=== PATIENT | male | born 1965 | race Caucasian/White ===

== ENCOUNTER → 2016-10-27 | Outpatient (CLI) | payer BC | END | disposition home or self-care (01) | LOC: GMAB 08:34 | PROVIDERS: ATTEND Family Medicine | DX: Z00.00 Encounter for general adult medical examination without abnormal findings (principal); E53.9 Vitamin B deficiency, unspecified; E51.9 Thiamine deficiency, unspecified; E55.9 Vitamin D deficiency, unspecified ==

== ENCOUNTER → 2017-02-01 | Outpatient (CLI) | payer BC | END | disposition home or self-care (01) | LOC: GMAB 10:46 | PROVIDERS: ATTEND Family Medicine | DX: E53.8 Deficiency of other specified B group vitamins (principal); E50.8 Other manifestations of vitamin A deficiency ==

== ENCOUNTER → 2017-04-05 | Outpatient (CLI) | payer BC | END | disposition home or self-care (01) | LOC: GMAB 10:36 | PROVIDERS: ATTEND Family Medicine | DX: R94.5 Abnormal results of liver function studies (principal) ==

== ENCOUNTER → 2017-05-15 | Outpatient (CLI) | payer BC | END | disposition home or self-care (01) | LOC: GMAB 15:39 | PROVIDERS: ATTEND Family Medicine | DX: R94.5 Abnormal results of liver function studies (principal) ==

== ENCOUNTER → 2017-05-22 | Outpatient (CLI) | payer BC ==
--- NOTE | 2017-05-22 15:37 | US ---
EXAM DESCRIPTION: Abdomen,Complete: Ultrasound. CLINICAL HISTORY: LIVER . Elevated LFTs. COMPARISON: None Available. TECHNIQUE: Transabdominal scannin-dimensional and Doppler modes.. Technically difficult study due to patient large body habitus. FINDINGS: The gallbladder is surgically absent. No fluid in the gallbladder fossa. Common bile duct caliber 6.2 mm which is physiologic postcholecystectomy.. No stones in the visualized portion of the duct. Not tender with transducer pressure. The liver demonstrates increased heterogeneous echogenicity; contour of the liver capsule is smooth where seen. No fluid around the liver. Intrahepatic biliary ducts are non-dilated. Craniocaudal dimension in the mid-clavicular axis is 17.9 cm. Pancreas head, body, and tail not well visualized. Duct was not seen. Abdominal aorta diameter proximal 1.8 cm. Mid 1.7 cm. Distal 2.4 cm. IVC visualized; normal caliber. Spleen normal echogenicity; long axis measurement is 14.4 cm. No fluid in the spleno-renal fossa. Right kidney measures 12.3 x 5.6 x 5.4 cm normal mid renal cortical thickness. Central 1.4 x 1.5 cm cyst. Echogenicity normal with no hydronephrosis, no large calcifications, and no perinephric fluid. Contour smooth. Vascularity normal. Ureter not visualized. Left kidney measures 12.7 x 7.1 x 5.8 cm with normal mid renal cortical thickness. 5.4 mm echogenic object in the mid cortex with possible acoustic posterior shadowing. 1.3 mm oval anechoic cortical cyst. Echogenicity otherwise normal with no hydronephrosis, no large calcifications, and no perinephric fluid. Contour smooth. Vascularity normal. Ureter not visualized. IMPRESSION: 1. Technically difficult study due to patient body habitus. 2. Fatty infiltration steatosis of the liver with mild enlargement. This can be a result of obesity and a variety of metabolic and toxic conditions. No ascites. Intrahepatic ducts are nondilated. 3. Pancreas was not well seen. Gallbladder has been surgically removed with no fluid in the gallbladder fossa. Physiologic dilation of the common bile duct. 4. Bilateral renal cysts. Possible 5.4 mm stone in the inferior left kidney with no hydronephrosis. No perinephric fluid bilaterally. 5. Minimal splenomegaly but normal echogenicity. No ascites. Electronically signed by: Jan Lee MD 05/22/2017 3:36 PM CDT
== END ==
LOC: US 07:54
PROVIDERS: ATTEND Family Medicine
DX: R94.5 Abnormal results of liver function studies (principal); K76.0 Fatty (change of) liver, not elsewhere classified; N28.1 Cyst of kidney, acquired

== ENCOUNTER → 2017-06-20 | Outpatient (CLI) | payer BC | END | disposition home or self-care (01) | LOC: LAB.O 10:45 | PROVIDERS: ATTEND Internal Medicine Gastroenterology | DX: R94.5 Abnormal results of liver function studies (principal) ==

== ENCOUNTER → 2017-09-10 | Outpatient (CLI) | payer BC | LOC: GMAB 11:28 | PROVIDERS: ATTEND Family Medicine | DX: D64.9 Anemia, unspecified (principal) ==

== ENCOUNTER → 2017-09-10 | Outpatient (CLI) | payer BC, OTHER, SELFPAY ==
--- NOTE | 2017-09-10 12:05 | RAD ---
EXAM DESCRIPTION: Neck, soft Tissue: CR. CLINICAL HISTORY: 51 years Male, MRI SCREEN COMPARISON: MRI scan of the lumbar spine to follow. TECHNIQUE: AP and lateral neck soft tissues. FINDINGS: Small surgical clip in the vicinity of the left C6-7 neural foramen. Cerclage wire loop left lateral elements at C5-6. No vascular hardware or surgical hardware. IMPRESSION: Cleared for MRI scan of the lumbar spine to follow. Electronically signed by: Jan Lee MD 09/10/2017 12:04 PM [facility]
--- NOTE | 2017-09-11 08:56 | MRI ---
EXAM DESCRIPTION: Lumbar Spine w/o Contrast MRI. CLINICAL HISTORY: LOW BACK PAIN COMPARISON: None. TECHNIQUE: Multiplanar, multiple standard sequences, non contrast MRI, lumbar spine. Sagittal and axial T2 sequences degraded by patient motion. FINDINGS: L5-S1 disc desiccation and minimal disc space loss. Left posterior 6 mm disc protrusion impressing on the ventral thecal sac and displacing the descending left S1 nerve above the lateral recess. Annular fissure in the disc. Bilateral lateral recess narrowing. Left paracentral mild canal stenosis. Bilateral facet arthrosis and mild flavum ligament hypertrophy. Stenosis of the right foramen and near stenosis of the left foramen. L4-5: Disc desiccation with posterior annular fissure. Minimal posterior broad-based bulge abutting the thecal sac and the descending bilateral L5 nerve roots. Mild facet arthrosis and ligament hypertrophy. AP canal diameter 10 mm. Moderate bilateral foraminal narrowing. L3-4: Minimal disc desiccation with disc space preserved. 6 mm disc protrusion into the right ventral canal abutting the descending right L4 nerve. Larger protrusion into the foramen creating foraminal stenosis and impingement of the right L3 nerve. Right paracentral mild canal stenosis. Minimal facet arthrosis and flavum ligament hypertrophy. Moderate left foraminal narrowing. L2-3: Minimal disc space loss with anterior bulging and anterior spurs. Small Schmorl's nodes. Posterior broad-based 3 mm bulge abutting the thecal sac in the descending L3 nerves above the lateral recess. Narrowing of the bony transverse canal with flavum hypertrophy and arthrosis of the facets. Borderline mild canal stenosis. Moderate left foraminal narrowing with right foramen patent. L1-2: Minimal disc desiccation. Schmorl's nodes in the endplates. No disc bulge. Transverse bony canal narrowing. Flavum ligament hypertrophy and facet arthrosis. Borderline canal stenosis. Left foramen patent mild narrowing right foramen. T12-L1: Minimal disc desiccation. Small Schmorl's nodes in the endplates. Minimal disc space loss. No disc bulging. Conus terminates at this level. Moderate canal narrowing. Bilateral foramina are patent. Paravertebral soft tissues are unremarkable. Normal marrow signal in the remaining vertebral bodies and the posterior elements. Vertebral bodies are not compressed at any level. IMPRESSION: 1. Left posterior L5-S1 disc protrusion. Imaging the thecal sac and the descending left S1 nerve with left paracentral canal stenosis. 2. Right posterior and right intraforaminal L3-4 disc protrusion abutting the descending right L4 nerve impinging the right L3 nerve in the foramen which is stenotic. Right paracentral mild canal stenosis. 3. Posterior broad-based L4-5 disc bulge abutting the descending bilateral L5 nerve roots. Borderline mild central canal stenosis. 4. Borderline mild central canal stenosis at L2-3 and L1-2 which is multifactorial. Posterior broad-based disc bulge at L2-3 also abutting the descending L3 nerves above the lateral recesses. Multiple levels of near-foraminal stenosis. Electronically signed by: Jan Lee MD 09/11/2017 8:55 AM SALES ORDER CLERK
== END ==
LOC: MRI 11:17
PROVIDERS: ATTEND Orthopaedic Surgery
DX: M51.26 Other intervertebral disc displacement, lumbar region (principal)

== ENCOUNTER → 2017-11-07 | Outpatient (CLI) | payer BC | END | disposition home or self-care (01) | LOC: GMAB 09:10 | PROVIDERS: ATTEND Family Medicine | DX: D50.9 Iron deficiency anemia, unspecified (principal); Z00.01 Encounter for general adult medical examination with abnormal findings; Z98.84 Bariatric surgery status; E55.9 Vitamin D deficiency, unspecified; E53.8 Deficiency of other specified B group vitamins ==

== ENCOUNTER → 2018-02-13 | Outpatient (CLI) | payer BC | LOC: GMAE 12:22 | PROVIDERS: ATTEND Family Medicine | DX: D64.9 Anemia, unspecified (principal) ==

== ENCOUNTER → 2018-03-08 | Outpatient (CLI) | payer BC | LOC: GMAE 10:28 | PROVIDERS: ATTEND Family Medicine | DX: D64.9 Anemia, unspecified (principal) ==

== ENCOUNTER → 2018-04-09 | Outpatient (CLI) | payer BC ==
--- NOTE | 2018-04-09 08:58 | MRI ---
EXAM DESCRIPTION: Thoracic Spine w/o Contrast CLINICAL HISTORY: 52 years Male, UPPER BACK PAIN COMPARISON: None. TECHNIQUE: Multiplanar multiecho imaging of the thoracic spine was performed without gadolinium administration. FINDINGS: T12 vertebral body is not included on this examination. Remainder of the vertebral body heights are well-maintained with no acute compression deformity. The intervertebral disc spaces are well preserved. No evidence of disc herniation. No canal stenosis or neural foraminal narrowing. The visualized thoracic spinal cord demonstrates no intrinsic signal abnormality. The visualized prevertebral and paravertebral soft tissues appear normal. IMPRESSION: T12 vertebral body is not included on this examination. Otherwise, grossly normal MRI of the thoracic spine. Electronically signed by: Brianne Stroud MD 04/09/2018 8:57 AM CDT
== END ==
LOC: MRI 06:52
PROVIDERS: ATTEND Family Medicine
DX: M54.6 Pain in thoracic spine (principal)

== ENCOUNTER → 2018-07-26 | Outpatient (CLI) | payer BC ==
--- NOTE | 2018-07-26 09:17 | US ---
EXAM DESCRIPTION: Ultrasound exam of the right upper quadrant with attention to the liver CLINICAL HISTORY: ABNORMAL RESULTS OF LIVER FUNCTION STUDIES COMPARISON: None Available. TECHNIQUE: Right upper quadrant ultrasound FINDINGS: Pancreas: Visualized portions of the pancreas are unremarkable. Bowel gas obscures some areas. Aorta/inferior vena cava: No aortic aneurysm. Normal inferior vena cava. Liver: The liver is homogeneous in texture with normal echogenicity of the hepatic parenchyma. No focal liver lesion or intrahepatic bile duct dilatation. No liver surface irregularity. Normal appearance of the portal vein and hepatic veins. Gallbladder: Not seen, evidently surgically absent. Common bile duct: Normal caliber measuring 4.0 mm. Right kidney: Renal length is 12.2 cm. Normal cortical echogenicity. Cortical thickness is decreased at the upper pole consistent with focal scarring. No hydronephrosis is seen. No renal mass or shadowing calculus. IMPRESSION: No diagnostic abnormality is identified on sonographic examination of the right upper quadrant. Electronically signed by: Roque Moscoso MD 07/26/2018 9:16 AM ONLINE MARKETING ANALYST
== END ==
LOC: US 08:18
PROVIDERS: ATTEND Family Medicine
DX: R94.5 Abnormal results of liver function studies (principal)

== ENCOUNTER → 2018-11-05 | Outpatient (CLI) | payer BC | LOC: GMAE 09:20 | PROVIDERS: ATTEND Family Medicine | DX: Z00.01 Encounter for general adult medical examination with abnormal findings (principal); E53.8 Deficiency of other specified B group vitamins; D50.8 Other iron deficiency anemias; D64.9 Anemia, unspecified; E55.9 Vitamin D deficiency, unspecified; Z98.84 Bariatric surgery status ==

== ENCOUNTER → 2019-06-04 | Outpatient (CLI) | payer BC | LOC: GMAE 14:03 | PROVIDERS: ATTEND Family Medicine | DX: E53.8 Deficiency of other specified B group vitamins (principal); D50.8 Other iron deficiency anemias; E78.2 Mixed hyperlipidemia; E51.9 Thiamine deficiency, unspecified; E55.9 Vitamin D deficiency, unspecified ==

== ENCOUNTER → 2019-11-18 | Outpatient (CLI) | payer BC | LOC: GMAE 09:51 | PROVIDERS: ATTEND Family Medicine | DX: Z00.00 Encounter for general adult medical examination without abnormal findings (principal); E53.8 Deficiency of other specified B group vitamins; D50.8 Other iron deficiency anemias; E51.9 Thiamine deficiency, unspecified; E55.9 Vitamin D deficiency, unspecified ==